=== PATIENT | male | born 2000 | race Caucasian/White ===

== ENCOUNTER 2024-09-10 11:38 | Emergency (ER) | payer SELFPAY ==
[~2024-09-10] VITALS: Ht 177.8 cm; Wt 77.0 kg
[2024-09-10 11:42] VITALS: BP 133/77; PULSE 91; RESP 8; TEMP 36.7; O2SAT 100
== END 2024-09-10 17:51 | disposition left against medical advice (07) ==
LOC: ER 11:38 → ENRESERV 09-11 10:56
DX: G93.40 Encephalopathy, unspecified (principal)
CPT/HCPCS: 99283